=== PATIENT | male | born 1945 | race American Indian/Alaskan Native ===

== ENCOUNTER 2017-07-25 19:53 | Inpatient (IN) | payer MEDICARE ==
--- NOTE | 2017-07-25 22:12 | Emergency Department Report ---
ED Shortness of Breath HPI - General Chief Complaint: Dyspnea/Respdistress Stated Complaint: SWOLLEN LEGS HX CHF Time Seen by Provider: 07/25/17 22:07 Source: patient Mode of arrival: Stretcher Limitations: No Limitations - History of Present Illness Initial Comments: Patient is a 71-year-old male who presents emergency room with complaints of shortness of breath on 2-3 days. Patient also complains of bilateral lower extremity edema only up to his knees. Patient states that the edema is worsening. Patient states that the shortness of breath develops exertion or worsening. Patient denies fever, chills, abdominal pain and chest pain. MD Complaint: shortness of breath -: Gradual, days(s) (2-3 days ago. She states that the symptoms are worsening) Severity: severe Consistency: constant Improves With: rest, other (elevation of legs) Worsens With: lying flat, exertion, movement Known History Of: congestive heart failure Context: medication noncompliance Associated Symptoms: denies other symptoms Treatments Prior to Arrival: none - Related Data Home Oxygen Therapy: No Home Medications Medication Instructions Recorded Confirmed Last Taken Amiodarone [Cordarone] 200 mg PO QDAY 05/01/13 05/01/13 05/01/13 08:00 Pravastatin Sodium [Pravastatin] 40 mg PO QDAY 05/01/13 05/01/13 05/01/13 08:00 Warfarin [Coumadin] 1 mg PO Q48HR 05/01/13 05/01/13 04/30/13 08:00 Warfarin [Coumadin] 5 mg PO QDAY 05/01/13 05/01/13 05/01/13 08:00 amLODIPine [Norvasc] 10 mg PO DAILY 05/01/13 05/01/13 05/01/13 08:00 hydrALAZINE [Apresoline] 25 mg PO Q8H 05/01/13 05/01/13 05/01/13 08:00 Previous Rx's Medication Instructions Recorded Last Taken Type Cyclobenzaprine HCl [FLEXERIL] 5 mg PO Q8HR PRN #20 tablet 05/01/13 Unknown Rx HYDROcodone/APAP 5-325 [[place] 1 each PO Q8HR PRN #20 tablet 05/01/13 Unknown Rx 5/325 mg] Allergies Allergy/AdvReac Type Severity Reaction Status Date / Time No Known Allergies Allergy Unverified 05/01/13 10:20 ED Review of Systems ROS: Stated complaint: SWOLLEN LEGS HX CHF Other details as noted in HPI Comment: All other systems reviewed and negative Constitutional: denies: chills, fever Eyes: denies: eye pain, eye discharge, vision change ENT: denies: ear pain, throat pain Respiratory: shortness of breath, SOB with exertion, SOB at rest. denies: cough , wheezing Cardiovascular: edema. denies: chest pain, palpitations Endocrine: no symptoms reported Gastrointestinal: denies: abdominal pain, nausea, diarrhea Genitourinary: denies: urgency, dysuria Musculoskeletal: denies: back pain, joint swelling, arthralgia Skin: denies: rash, lesions Neurological: denies: headache, weakness, paresthesias Psychiatric: denies: anxiety, depression Hematological/Lymphatic: denies: easy bleeding, easy bruising ED Past Medical Hx - Past Medical History Previous Medical History?: Yes Hx Hypertension: Yes Hx CVA: Yes Hx Heart Attack/AMI: Yes Hx Congestive Heart Failure: Yes Hx COPD: Yes Additional medical history: high cholesterol. ? heart beat irregular - Surgical History Past Surgical History?: Yes Additional Surgical History: left clavicle - Family History Family history: hypertension - Social History Smoking Status: Current Every Day Smoker Substance Use Type: Alcohol - Medications Home Medications: Home Medications Medication Instructions Recorded Confirmed Last Taken Type Amiodarone [Cordarone] 200 mg PO QDAY 05/01/13 05/01/13 05/01/13 08:00 History Cyclobenzaprine HCl [FLEXERIL] 5 mg PO Q8HR PRN #20 tablet 05/01/13 Unknown Rx HYDROcodone/APAP 5-325 [[place] 1 each PO Q8HR PRN #20 tablet 05/01/13 Unknown Rx 5/325 mg] Pravastatin Sodium [Pravastatin] 40 mg PO QDAY 05/01/13 05/01/13 05/01/13 08:00 History Warfarin [Coumadin] 1 mg PO Q48HR 05/01/13 05/01/13 04/30/13 08:00 History Warfarin [Coumadin] 5 mg PO QDAY 05/01/13 05/01/13 05/01/13 08:00 History amLODIPine [Norvasc] 10 mg PO DAILY 05/01/13 05/01/13 05/01/13 08:00 History hydrALAZINE [Apresoline] 25 mg PO Q8H 05/01/13 05/01/13 05/01/13 08:00 History ED Physical Exam - General Limitations: No Limitations General appearance: alert, in no apparent distress - Head Head exam: Present: atraumatic, normocephalic - Eye Eye exam: Present: normal appearance - ENT ENT exam: Present: mucous membranes moist - Neck Neck exam: Present: normal inspection - Respiratory Respiratory exam: Present: normal lung sounds bilaterally. Absent: respiratory distress - Cardiovascular Cardiovascular Exam: Present: regular rate, normal rhythm. Absent: systolic murmur, diastolic murmur, rubs, gallop - GI/Abdominal GI/Abdominal exam: Present: soft, normal bowel sounds - Rectal Rectal exam: Present: deferred - Extremities Exam Extremities exam: Present: pedal edema (3+ pitting edema to the bilateral lower extremities) - Back Exam Back exam: Present: normal inspection - Neurological Exam Neurological exam: Present: alert, oriented X3 - Psychiatric Psychiatric exam: Present: normal affect, normal mood - Skin Skin exam: Present: warm, dry, intact, normal color. Absent: rash ED Course Vital Signs 07/25/17 07/25/17 07/25/17 21:12 23:22 23:31 Temperature 98.6 F Pulse Rate 77 127 H 117 H Respiratory 17 17 25 H Rate Blood Pressure 163/109 178/131 O2 Sat by Pulse 99 Oximetry 07/25/17 23:40 Temperature Pulse Rate 112 H Respiratory Rate Blood Pressure O2 Sat by Pulse Oximetry - Reevaluation(s) Reevaluation #1: 07/25/17 23:07 -- discuss case with . Dr Andersen recommends admission to the hospital and treat patient as an N STEMI, along with heparin drip, Lasix, Lopressor. And consult hospitalist for admission. Reevaluation #2: 07/26/17 00:32--- patient states shortness of breath improved with treatment. Results discussed with patient. Patient informed he will be admitted to the hospital patient agrees to plan of care. Patient states he is diuresing well ED Medical Decision Making - Lab Data Result diagrams: 07/25/17 21:39 07/25/17 21:39 - EKG Data -: EKG Interpreted by Me Rate: tachycardia - EKG Data When compared to previous EKG there are: previous EKG unavailable Interpretation: other (atrial fibrillation with a left bundle branch block) - Radiology Data Radiology results: report reviewed - Medical Decision Making Patient is a 71-year-old male presented to the emergency room with shortness of breath and found to be a an STEMI and CHF exacerbation. Hospitalist consultation for further evaluation and admission. Hospitalist will admit - Differential Diagnosis sob. pe. chf. nstemi Critical Care Time: Yes Critical care attestation.: If time is entered above; I have spent that time in minutes in the direct care of this critically ill patient, excluding procedure time. Critical Care Time: 45 minutes spent for critical care time ED Disposition Clinical Impression: Shortness of breath, Non-STEMI (non-ST elevated myocardial infarction), CHF exacerbation, Elevated d-dimer, Elevated brain natriuretic peptide (BNP) level, Anemia, Lower extremity edema, Hypertension Disposition: OP ADMIT IP TO THIS HOSP Is pt being admited?: Yes Does the pt Need Aspirin: No Condition: Critical Time of Disposition: 00:01
[2017-07-25 22:13] LABS: Basophils % (Auto) 0.3 % (0.0-1.8); Eosinophils % (Auto) 0.5 % (0.0-4.3); Hematocrit 33.3 % (35.5-45.6); Hemoglobin 10.3 gm/dl (11.8-15.2); Lymphocytes # (Auto) 1.3 K/mm3 (1.2-5.4); Lymphocytes % (Auto) 21.5 % (13.4-35.0); Mean Corpuscular HGB Conc 31 % (32-34); Mean Corpuscular Volume 74 fl (84-94); Monocytes # (Auto) 0.8 K/mm3 (0.0-0.8); Platelet Count 224 K/mm3 (140-440); Red Blood Count 4.52 M/mm3 (3.65-5.03); Red Cell Distribution Width 17.9 % (13.2-15.2)
[2017-07-25] MEDS ORDERED: ASPIRIN PO ONE (22:16)
[2017-07-25 22:17] LABS: BUN/Creatinine Ratio 18; Blood Urea Nitrogen 25 mg/dL (9-20); Calcium 9.1 mg/dL (8.4-10.2); Hemolysis Index 4
[2017-07-25 22:21] LABS: Mean Corpuscular Hemoglobin 23 pg (28-32)
--- NOTE | 2017-07-25 22:36 | XRay Report ---
FINAL REPORT PROCEDURE: PA and lateral chest x-ray TECHNIQUE: PA and lateral chest radiographs were obtained. CPT 78895 HISTORY: Shortness of breath COMPARISON: No prior studies are available for comparison. FINDINGS: The heart is diffusely enlarged. The pulmonary vasculature is not distended. The lungs are hyperinflated with flattening of the diaphragms and mild increased AP diameter suggesting underlying COPD. There is patchy alveolar density present in the left lower lobe suggesting pneumonia or atelectasis. There is mild blunting of the left lateral costophrenic angle suggesting small left pleural effusions. No acute bony abnormalities are identified. IMPRESSION: Cardiomegaly. COPD. Patchy alveolar density present in the left lower lobe as described suggesting pneumonia as well small left effusion. Atelectasis could present this manner. .
[2017-07-25 22:46] LABS: Chol/HDL Ratio 2.59 %; HDL Cholesterol 52 mg/dL (40-59); LDL Cholesterol,Direct 69 mg/dL (50-130)
[2017-07-25] MEDS ORDERED: LASIX IV ONE (23:11)
[2017-07-25] MEDS ORDERED: LOPRESSOR IV ONE (23:11)
[2017-07-25] MEDS ORDERED: HEPARIN 25,000 UNIT in D5W 497.5 ML IV SCH (23:45)
[2017-07-25] MEDS ORDERED: TYLENOL PO PRN (23:54)
[2017-07-25] MEDS ORDERED: ZOFRAN IV PRN (23:54)
[2017-07-25] MEDS ORDERED: DULCOLAX PR PRN (23:54)
[2017-07-25] MEDS ORDERED: MILK OF MAGNESIA PO PRN (23:54)
[2017-07-25] MEDS ORDERED: MORPHINE IV PRN (23:54)
--- NOTE | 2017-07-25 23:54 | History and Physical Report ---
History of Present Illness Date of examination: 07/25/17 History of present illness: 71-year-old man with a history of hypertension, hyperlipidemia, CVA, emergency room with complaints of shortness of breath, PND and orthopnea 2 weeks and lower extremity edema. Also complaining of pain across his chest which he described as a heavy sensation, unable to say how long he lost 4, intensity 5/10 , no radiation and degenerated and exacerbating or relieving factors. Admits to palpitation, no nausea vomiting, diaphoresis he is unclear about when the chest pain started Review Of Systems: Constitutional: no weight loss Ears, eyes, nose, mouth and throat: no nasal congestion, no nasal discharge, no sinus pressure, blurry vision, diplopia Neck: No neck pain or rigidity. Cardiovascular: +chest pain, palpitations Respiratory:+ shortness of breath, cough Gastrointestinal: No abdominal pain, hematochezia Genitourinary : no dysuria, frequency , hematuria Musculoskeletal: no muscle ache Integumentary: no rash, no pruritis Neurological: no parathesias, focal weakness Endocrine: no cold or heat intolerance, no polyuria or polydipsia Hematologic/Lymphatic: no easy bruising, no easy bleeding, no gland swelling Allergic/Immunologic: no urticaria, no angioedema. PAST MEDICAL HISTORY: hypertension, hyperlipidemia, CVA PAST SURGICAL HISTORY: None FAMILY HISTORY: Hypertension SOCIAL HISTORY: Smokes 6 cigarettes a day, alcohol use, no drugs Medications and Allergies Allergies Allergy/AdvReac Type Severity Reaction Status Date / Time No Known Allergies Allergy Unverified 05/01/13 10:20 Home Medications Medication Instructions Recorded Confirmed Last Taken Type Amiodarone [Cordarone] 200 mg PO QDAY 05/01/13 05/01/13 05/01/13 08:00 History Cyclobenzaprine HCl [FLEXERIL] 5 mg PO Q8HR PRN #20 tablet 05/01/13 Unknown Rx HYDROcodone/APAP 5-325 [[place] 1 each PO Q8HR PRN #20 tablet 05/01/13 Unknown Rx 5/325 mg] Pravastatin Sodium [Pravastatin] 40 mg PO QDAY 05/01/13 05/01/13 05/01/13 08:00 History Warfarin [Coumadin] 1 mg PO Q48HR 05/01/13 05/01/13 04/30/13 08:00 History Warfarin [Coumadin] 5 mg PO QDAY 05/01/13 05/01/13 05/01/13 08:00 History amLODIPine [Norvasc] 10 mg PO DAILY 05/01/13 05/01/13 05/01/13 08:00 History hydrALAZINE [Apresoline] 25 mg PO Q8H 05/01/13 05/01/13 05/01/13 08:00 History Active Meds: Active Medications Heparin Sodium/Sodium Chloride (Heparin/ 0.45% Nacl-25,000 Unit/500 Ml) 25,000 unit in 500 mls @ 24 mls/hr IV TITR YA; 1,200 UNITS/HR PRN Reason: Protocol Exam - Physical Exam Narrative exam: Gen. appearance: Patient lying in bed in no acute distress HEENT: Normocephalic/atraumatic, pupils equal round reactive to light, extra occular movement intact, no scleral icterus, no JVD or thyromegaly or nodule, neck is supple, mucous membrane moist, no erythema or exudate Heart: S1-S2, regular rate and rhythm Lungs: Crackles bilateral breathing comfortable Abdomen: Positive bowel sounds, nontender, nondistended, no organomegaly Extremities:no edema, no cyanosis, clubbing Neuro:: Oriented 3 , cranial nerves II-12 intact, speech, motor intact Skin: No rash, nodules, warm dry - Constitutional Vitals: Temp Pulse Resp BP Pulse Ox 98.6 F 112 H 25 H 178/131 99 07/25/17 21:12 07/25/17 23:40 07/25/17 23:31 07/25/17 23:31 07/25/17 21:12 Results - Labs CBC & Chem 7: 07/25/17 21:39 07/25/17 21:39 Labs: Abnormal lab results 07/25/17 07/25/17 07/25/17 Range/Units 21:39 21:39 22:34 Hgb 10.3 L (11.8-15.2) gm/dl Hct 33.3 L (35.5-45.6) % MCV 74 L (84-94) fl MCH 23 L (28-32) pg MCHC 31 L (32-34) % RDW 17.9 H (13.2-15.2) % [place] % (Auto) 13.0 H (0.0-7.3) % D-Dimer (0-234) ng/mlDDU BUN 25 H (9-20) mg/dL Troponin T 1.370 H* (0.00-0.029) ng/mL NT-Pro-B Natriuret Pep 8317 H (0-900) pg/mL 07/25/17 Range/Units 22:34 Hgb (11.8-15.2) gm/dl Hct (35.5-45.6) % MCV (84-94) fl MCH (28-32) pg MCHC (32-34) % RDW (13.2-15.2) % [place] % (Auto) (0.0-7.3) % D-Dimer 973.26 H (0-234) ng/mlDDU BUN (9-20) mg/dL Troponin T (0.00-0.029) ng/mL NT-Pro-B Natriuret Pep (0-900) pg/mL - Imaging and Cardiology EKG: image reviewed Chest x-ray: image reviewed Assessment and Plan Assessment Non-STEMI CHF, acute probably diastolic dysfunction Community acquired pneumonia Hypertension Hyperlipidemia History of CVA Plan Admit to medicine Start Beta gabriela, MELVIN inhibitor, aspirin, IV Lasix Monitor I's and O's, daily weights Check cardiac enzymes, echo, consult cardiology Consult critical care, continue heparin drip, IV Levaquin DVT prophylaxis
[2017-07-26] MEDS: HEPARIN/ 0.45% NACL-25,000 UNIT/500 ML 25,000 UNIT/500 ML BAG IV SCH (00:29)
[2017-07-26] MEDS: LEVAQUIN PO SCH ×2 (01:00→09:45)
[2017-07-26 01:15] LABS: Creatine Kinase MB 115.3 ng/mL (0.0-4.0)
--- NOTE | 2017-07-26 02:58 | Cat Scan Report ---
FINAL REPORT PROCEDURE: CT ANGIO CHEST TECHNIQUE: Computerized tomographic angiography of the chest was performed after the IV injection of iodinated nonionic contrast including image processing. The image data was postprocessed using 2-dimensional multiplanar reformatted (MPR) and 3-dimensional (MIP and/or volume rendered) techniques. HISTORY: sob COMPARISON: No prior studies are available for comparison. FINDINGS: Heart and pericardium: The heart is borderline enlarged. There is a tiny pericardial effusion.. Thoracic aorta: There is calcified plaque in the thoracic aorta. There is inadequate luminal contrast to detect dissection.. Pulmonary vasculature: There is no pulmonary embolism.. Lymph nodes: No enlarged thoracic lymph nodes. Lungs: The lungs are expanded. There is moderate COPD. There are bibasilar infiltrates. Pleural space: There are small bilateral pleural effusions. There is no pneumothorax.. Musculoskeletal structures: No significant abnormality. Upper abdominal structures: No significant abnormality. IMPRESSION: There is no pulmonary embolism. The heart is borderline enlarged. There is a tiny pericardial effusion.. There is calcified plaque in the thoracic aorta. There is inadequate luminal contrast to detect dissection.. The lungs are expanded. There is moderate COPD. There are bibasilar infiltrates. There are small bilateral pleural effusions. There is no pneumothorax..
[2017-07-26] MEDS ORDERED: APRESOLINE IV PRN (03:22)
[2017-07-26] MEDS ORDERED: APRESOLINE ONE (03:25)
[2017-07-26 04:35] LABS: Hemoglobin 8.6 gm/dl (11.8-15.2); Mean Corpuscular Volume 76 fl (84-94); Red Blood Count 4.22 M/mm3 (3.65-5.03)
[2017-07-26 04:36] LABS: Basophils % (Auto) 0.3 % (0.0-1.8); Lymphocytes % (Auto) 23.6 % (13.4-35.0); Mean Corpuscular HGB Conc 27 % (32-34); Mean Corpuscular Hemoglobin 21 pg (28-32); Monocytes # (Auto) 0.6 K/mm3 (0.0-0.8); Monocytes % (Auto) 14.3 % (0.0-7.3); Platelet Count 175 K/mm3 (140-440); Red Cell Distribution Width 18.2 % (13.2-15.2)
[2017-07-26 04:52] LABS: BUN/Creatinine Ratio 18; Blood Urea Nitrogen 25 mg/dL (9-20); Calcium 8.8 mg/dL (8.4-10.2); Hemolysis Index 10
[2017-07-26] MEDS: LASIX IV SCH (06:43)
[2017-07-26 06:47] LABS: Creatine Kinase MB 88.9 ng/mL (0.0-4.0)
[2017-07-26] MEDS: ECOTRIN PO SCH (09:45)
[2017-07-26] MEDS ORDERED: COREG PO SCH (10:00)
--- NOTE | 2017-07-26 11:04 | Consultation ---
History of Present Illness Consult date: 07/26/17 Requesting physician: SHIELA PORTILLO III Consult reason: other (nstemi) History of present illness: The pt is a 71 YO male with a past medical history significant for HTN, HLP, tobacco use and ETOH use. He is previously unknown to our practice. He presented with complaints of dyspnea on exertion for 2-3 days prior to arrival. He also c/o progressively worsening BLE edema for 1 week prior to arrival. Pt denies any chest pain, palpitations, n/v, diaphoresis, dizziness or syncope. Following admission, DDimer was found to be elevated. Chest CTA was negative for PE, showed tiny pericardial effusion, calcified plaque in the thoracic aorta , moderate COPD, bibasilar infiltrates, small bilateral pleural effusions. Troponins were also found to be elevated (1.370 --> 2.010) with elevated total CK, CK-MB and CK-MB index and thus heparin gtt was initiated. ECG with no acute ischemic chages. Pt was also found to be in atrial fibrillation. He reports a history of "irregular heart rhythm" 15 years ago secondary to excessive alcohol consumption. He denies any prior AMI, cardiac stents or heart failure. 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 He denies any prior cardiac evaluation. Past History Past Medical History: hypertension, hyperlipidemia Social history: smoking, alcohol abuse Medications and Allergies Allergies Allergy/AdvReac Type Severity Reaction Status Date / Time No Known Allergies Allergy Unverified 05/01/13 10:20 Home Medications Medication Instructions Recorded Confirmed Last Taken Type Aspirin [Adult Low Dose Aspirin EC] 81 mg PO DAILY 07/26/17 07/26/17 07/24/17 History Ibuprofen [Motrin] 200 mg PO Q2D PRN 07/26/17 07/26/17 Unknown History Lactase [Dairy Relief] 9,000 unit PO QDAY 07/26/17 07/26/17 07/24/17 History Active Meds: Active Medications Acetaminophen (Tylenol) 650 mg PO Q4H PRN PRN Reason: Pain MILD(1-3)/Fever >100.5/[place] Aspirin (Ecotrin) 325 mg PO QDAY [facility] Last Admin: 07/26/17 09:45 Dose: 325 mg Atorvastatin Calcium (Lipitor) 40 mg PO QHS [facility] Bisacodyl (Dulcolax) 10 mg [place] QDAY PRN PRN Reason: Constipation unrelieved by MOM Carvedilol (Coreg) 3.125 mg PO BID [facility] Last Admin: 07/26/17 09:44 Dose: 3.125 mg Furosemide (Lasix) 40 mg IV 0600,1800 [facility] Last Admin: 07/26/17 06:43 Dose: 40 mg Hydralazine HCl (Apresoline) 5 mg IV Q6H PRN PRN Reason: Blood Pressure Last Admin: 07/26/17 03:28 Dose: 5 mg Heparin Sodium/Sodium Chloride (Heparin/ 0.45% Nacl-25,000 Unit/500 Ml) 25,000 unit in 500 mls @ 24 mls/hr IV TITR YA; 1,200 UNITS/HR PRN Reason: Protocol Last Titration: 07/26/17 07:16 Dose: 1,284 units/hr, 25.68 mls/hr Levofloxacin (Levaquin) 500 mg PO DAILY [facility] Last Admin: 07/26/17 09:45 Dose: 500 mg Magnesium Hydroxide (Milk Of Magnesia) 30 ml PO Q4H PRN PRN Reason: Constipation Morphine Sulfate (Morphine) 2 mg IV Q4H PRN PRN Reason: Pain, Moderate (4-6) Ondansetron HCl (Zofran) 4 mg IV Q8H PRN PRN Reason: N/V unrelieved by Reglan Review of Systems Constitutional: no weight loss, no weight gain, no fever, no chills, no sweats Ears, nose, mouth and throat: no ear pain, no nose pain, no sinus pressure, no sinus pain Cardiovascular: shortness of breath, dyspnea on exertion, high blood pressure, leg edema (BLE), no chest pain, no orthopnea, no palpitations, no rapid/ irregular heart beat, no edema, no syncope, no lightheadedness Respiratory: shortness of breath, dyspnea on exertion, no cough, no congestion, no wheezing, no pain on inspiration Gastrointestinal: no abdominal pain, no nausea, no vomiting, no diarrhea, no constipation, no change in bowel habits Genitourinary Male: no dysuria, no hematuria, no flank pain, no discharge, no urinary frequency, no urinary hesitancy Musculoskeletal: no neck stiffness, no neck pain, no shooting arm pain, no arm numbness/tingling, no low back pain, no shooting leg pain, no leg numbness/ tingling, no redness of joints, no hot joints, no morning stiffness, no muscle weakness Integumentary: no rash, no pruritis, no redness, no sores, no wounds Neurological: no head injury, no paralysis, no weakness, no parathesias, no numbness, no tingling, no seizures, no syncope Psychiatric: no anxiety Endocrine: no cold intolerance, no heat intolerance Hematologic/Lymphatic: no easy bruising, no easy bleeding, no lymphadenopathy Allergic/Immunologic: no urticaria, no wheezing, no persistent infections Physical Examination Vital Signs Temp Pulse Resp BP Pulse Ox 98.6 F 77 17 163/109 99 07/25/17 21:12 07/25/17 21:12 07/25/17 21:12 07/25/17 21:12 07/25/17 21:12 General appearance: no acute distress HEENT: Positive: PERRL, Normocephaly, Mucus Membranes Moist Neck: Positive: neck supple, trachea midline Cardiac: Positive: Reg Rate and Rhythm, S1/S2 Lungs: Positive: clear to auscultation Neuro: Positive: Grossly Intact Abdomen: Positive: Soft. Negative: Tender Skin: Positive: Clear Musculoskeletal: No Fluid Collection, No Pain, Normal Range of Motion Extremities: Present: +2 Edema (BLE) Results 07/26/17 03:53 07/26/17 03:53 Cardiac Enzymes 07/25/17 07/26/17 Range/Units 22:34 05:53 CK-MB (CK-2) 115.3 H 88.9 H (0.0-4.0) ng/mL Lipids 07/25/17 Range/Units 21:39 Triglycerides 71 (2-149) mg/dL Cholesterol 135 (50-199) mg/dL HDL Cholesterol 52 (40-59) mg/dL Cholesterol/HDL Ratio 2.59 % CBC 07/25/17 07/26/17 Range/Units 21:39 03:53 WBC 6.1 4.4 L (4.5-11.0) K/mm3 RBC 4.52 4.22 (3.65-5.03) M/mm3 Hgb 10.3 L 8.6 L (11.8-15.2) gm/dl Hct 33.3 L 32.0 L (35.5-45.6) % Plt Count 224 175 (140-440) K/mm3 Lymph # 1.3 1.0 L (1.2-5.4) K/mm3 [place] # 0.8 0.6 (0.0-0.8) K/mm3 Eos # 0.0 0.0 (0.0-0.4) K/mm3 Baso # 0.0 0.0 (0.0-0.1) K/mm3 Comprehensive Metabolic Panel 07/25/17 07/26/17 Range/Units 21:39 03:53 Sodium 140 137 (137-145) mmol/L Potassium 4.1 4.1 (3.6-5.0) mmol/L Chloride 101.0 98.3 (98-107) mmol/L Carbon Dioxide 22 22 (22-30) mmol/L BUN 25 H 25 H (9-20) mg/dL Creatinine 1.4 1.4 (0.8-1.5) mg/dL Glucose 90 89 (75-100) mg/dL Calcium 9.1 8.8 (8.4-10.2) mg/dL - Imaging and Cardiology Echo: pending EKG: report reviewed, image reviewed EKG interpretations - Telemetry EKG Rhythm: Atrial Fibrillation - EKG Supraventricular dysrhythmia: atrial fibrillation Assessment and Plan Assessment: NSTEMI type I - pt is chest pain free; ECG with no acute ischemic changes Acute heart failure Atrial fibrillation Uncontrolled HTN Bilateral PNA Elevated DDimer - chest CTA negative for PE H/o tobacco use / ETOH use - cessation encouraged Plan: Continue heparin gtt, ASA 325 and lipitor. Initiate lopressor and Imdur. Cont diuresis with IV lasix BID. Obtain echo. Abx per primary. Plan for coronary angiography in AM. NPO after MN. Assessment and plan reviewed with pt at bedside. The patient has been seen in conjunction with Dr. Simon who agrees with the assessment and plan of care.
--- NOTE | 2017-07-26 11:43 | Consultation ---
History of Present Illness Consult date: 07/26/17 Requesting physician: PRATIBHA MADISON Reason for consult: other (NSTEMI; ACS) History of present illness: PULMONARY/CCM CONSULT NOTE (Full dictation # [id number]) Please see dictated notes for full details Past History Past Medical History: hypertension, hyperlipidemia Social history: smoking, alcohol abuse Medications and Allergies Allergies Allergy/AdvReac Type Severity Reaction Status Date / Time No Known Allergies Allergy Unverified 05/01/13 10:20 Home Medications Medication Instructions Recorded Confirmed Last Taken Type Aspirin [Adult Low Dose Aspirin EC] 81 mg PO DAILY 07/26/17 07/26/17 07/24/17 History Ibuprofen [Motrin] 200 mg PO Q2D PRN 07/26/17 07/26/17 Unknown History Lactase [Dairy Relief] 9,000 unit PO QDAY 07/26/17 07/26/17 07/24/17 History Active Meds: Active Medications Acetaminophen (Tylenol) 650 mg PO Q4H PRN PRN Reason: Pain MILD(1-3)/Fever >100.5/SULLIVAN Aspirin (Ecotrin) 325 mg PO QDAY YA Last Admin: 07/26/17 09:45 Dose: 325 mg Atorvastatin Calcium (Lipitor) 40 mg PO QHS YA Bisacodyl (Dulcolax) 10 mg HI QDAY PRN PRN Reason: Constipation unrelieved by MOM Furosemide (Lasix) 40 mg IV 0600,1800 YA Last Admin: 07/26/17 06:43 Dose: 40 mg Hydralazine HCl (Apresoline) 5 mg IV Q6H PRN PRN Reason: Blood Pressure Last Admin: 07/26/17 03:28 Dose: 5 mg Heparin Sodium/Sodium Chloride (Heparin/ 0.45% Nacl-25,000 Unit/500 Ml) 25,000 unit in 500 mls @ 24 mls/hr IV TITR YA; 1,200 UNITS/HR PRN Reason: Protocol Last Titration: 07/26/17 07:16 Dose: 1,284 units/hr, 25.68 mls/hr Sodium Chloride (Nacl 0.9% 500 Ml) 500 mls @ 50 mls/hr IV DIRECT YA Stop: 07/26/17 21:59 Isosorbide Mononitrate (Imdur) 30 mg PO QDAY YA Levofloxacin (Levaquin) 500 mg PO DAILY [facility] Last Admin: 07/26/17 09:45 Dose: 500 mg Magnesium Hydroxide (Milk Of Magnesia) 30 ml PO Q4H PRN PRN Reason: Constipation Metoprolol Tartrate (Lopressor) 25 mg PO BID [facility] Morphine Sulfate (Morphine) 2 mg IV Q4H PRN PRN Reason: Pain, Moderate (4-6) Ondansetron HCl (Zofran) 4 mg IV Q8H PRN PRN Reason: N/V unrelieved by Reglan Physical Examination Vital signs: Vital Signs Temp Pulse Resp BP Pulse Ox 98.6 F 77 17 163/109 99 07/25/17 21:12 07/25/17 21:12 07/25/17 21:12 07/25/17 21:12 07/25/17 21:12 Results - Laboratory Findings CBC and BMP: 07/26/17 03:53 07/26/17 03:53 PT/INR, D-dimer D-Dimer 973.26 ng/mlDDU (0-234) H 07/25/17 22:34 Abnormal lab findings: Abnormal Labs 07/25/17 07/25/17 07/25/17 21:39 21:39 22:34 WBC Hgb 10.3 L Hct 33.3 L MCV 74 L MCH 23 L MCHC 31 L RDW 17.9 H [place] % (Auto) 13.0 H Lymph # D-Dimer Heparin Anti-Xa Level BUN 25 H Total Creatine Kinase CK-MB (CK-2) CK-MB (CK-2) Rel Index Troponin T 1.370 H* NT-Pro-B Natriuret Pep 8317 H 07/25/17 07/25/17 07/26/17 22:34 22:34 03:53 WBC 4.4 L Hgb 8.6 L Hct 32.0 L MCV 76 L MCH 21 L MCHC 27 L RDW 18.2 H [place] % (Auto) 14.3 H Lymph # 1.0 L D-Dimer 973.26 H Heparin Anti-Xa Level BUN Total Creatine Kinase 736 H CK-MB (CK-2) 115.3 H CK-MB (CK-2) Rel Index 15.6 H Troponin T NT-Pro-B Natriuret Pep 02/12/18 02/12/18 02/12/18 03:53 05:53 05:53 WBC Hgb Hct MCV MCH MCHC RDW [place] % (Auto) Lymph # D-Dimer Heparin Anti-Xa Level BUN 25 H Total Creatine Kinase 667 H CK-MB (CK-2) 88.9 H CK-MB (CK-2) Rel Index 13.3 H Troponin T 2.010 H* D NT-Pro-B Natriuret Pep 07/26/17 05:53 WBC Hgb Hct MCV MCH MCHC RDW [place] % (Auto) Lymph # D-Dimer Heparin Anti-Xa Level 0.19 L BUN Total Creatine Kinase CK-MB (CK-2) CK-MB (CK-2) Rel Index Troponin T NT-Pro-B Natriuret Pep
[2017-07-26] MEDS ORDERED: NACL 0.9% 500 ML 500 ML IV SCH (12:00)
[2017-07-26] MEDS ORDERED: IMDUR PO SCH (12:00)
--- NOTE | 2017-07-26 12:20 | Progress Note ---
Assessment and Plan Assessment and plan: 71-year-old man with a history of hypertension, hyperlipidemia, CVA, emergency room with complaints of shortness of breath, PND and orthopnea 2 weeks and lower extremity edema, chest pain and palpitations, found to have NSTEMI, acutely Elevated DDimer - chest CTA negative for PE Non-STEMI CHF, acute Community acquired pneumonia Afib with RVR and hypercoaguable state Hypertensive urgency Hyperlipidemia History of CVA ckd stage 2 Plan Plan for coronary angiography in AM. NPO after MN. on nitrates, Beta gabriela, MELVIN inhibitor, aspirin, IV Lasix, heparin drip Monitor I's and O's, daily weights, lasix received IV metoprolol, rate is now better controlled continue oral B-Bl IV levaquin avoid nephrotoxins H/o tobacco use / ETOH use - cessation encouraged The high probability of a clinically significant, sudden or life threatening deterioration of the [cv, pulmonary, renal] system(s) required my full and direct attention, intervention and personal management. The aggregate critical care time was [44] minutes. This time is in addition to time spent performing reported procedures but includes the following: [] Data Review and interpretation [] Patient assessment and monitoring of vital signs [] Documentation [] Medication orders and management History Interval history: denies CP, palpitations, sob, SULLIVAN or fever Hospitalist Physical - Constitutional Vitals: Temp Pulse Resp BP Pulse Ox 98.2 F 111 H 24 156/110 96 07/26/17 04:27 07/26/17 10:00 07/26/17 10:00 07/26/17 10:00 07/26/17 09:31 General appearance: Present: no acute distress - EENT Eyes: Present: PERRL ENT: hearing intact - Neck Neck: Present: supple - Respiratory Respiratory effort: normal Respiratory: bilateral: CTA - Cardiovascular Rhythm: regular - Extremities Extremities: no ischemia Peripheral Pulses: within normal limits - Abdominal General gastrointestinal: soft, non-tender - Integumentary Integumentary: Present: clear, warm - Psychiatric Psychiatric: appropriate mood/affect, intact judgment & insight - Neurologic Neurologic: CNII-XII intact, moves all extremities Results - Labs CBC & Chem 7: 07/26/17 03:53 07/26/17 03:53 Labs: Laboratory Last Values WBC 4.4 K/mm3 (4.5-11.0) L 07/26/17 03:53 RBC 4.22 M/mm3 (3.65-5.03) 07/26/17 03:53 Hgb 8.6 gm/dl (11.8-15.2) L 07/26/17 03:53 Hct 32.0 % (35.5-45.6) L 07/26/17 03:53 MCV 76 fl (84-94) L 07/26/17 03:53 MCH 21 pg (28-32) L 07/26/17 03:53 MCHC 27 % (32-34) L 07/26/17 03:53 RDW 18.2 % (13.2-15.2) H 07/26/17 03:53 Plt Count 175 K/mm3 (140-440) 07/26/17 03:53 Lymph % (Auto) 23.6 % (13.4-35.0) 07/26/17 03:53 [place] % (Auto) 14.3 % (0.0-7.3) H 07/26/17 03:53 Eos % (Auto) 1.0 % (0.0-4.3) 07/26/17 03:53 Baso % (Auto) 0.3 % (0.0-1.8) 07/26/17 03:53 Lymph # 1.0 K/mm3 (1.2-5.4) L 07/26/17 03:53 [place] # 0.6 K/mm3 (0.0-0.8) 07/26/17 03:53 Eos # 0.0 K/mm3 (0.0-0.4) 07/26/17 03:53 Baso # 0.0 K/mm3 (0.0-0.1) 07/26/17 03:53 Seg Neutrophils % 60.8 % (40.0-70.0) 07/26/17 03:53 Seg Neutrophils # 2.7 K/mm3 (1.8-7.7) 07/26/17 03:53 D-Dimer 973.26 ng/mlDDU (0-234) H 07/25/17 22:34 Heparin Anti-Xa Level 0.19 U.I./ml (0.3-0.7) L 07/26/17 05:53 Sodium 137 mmol/L (137-145) 07/26/17 03:53 Potassium 4.1 mmol/L (3.6-5.0) 07/26/17 03:53 Chloride 98.3 mmol/L (98-107) 07/26/17 03:53 Carbon Dioxide 22 mmol/L (22-30) 07/26/17 03:53 Anion Gap 21 mmol/L 07/26/17 03:53 BUN 25 mg/dL (9-20) H 07/26/17 03:53 Creatinine 1.4 mg/dL (0.8-1.5) 07/26/17 03:53 Estimated GFR > 60 ml/min 07/26/17 03:53 BUN/Creatinine Ratio 18 % 07/26/17 03:53 Glucose 89 mg/dL (75-100) 07/26/17 03:53 Calcium 8.8 mg/dL (8.4-10.2) 07/26/17 03:53 Total Creatine Kinase 667 units/L (55-170) H 07/26/17 05:53 CK-MB (CK-2) 88.9 ng/mL (0.0-4.0) H 07/26/17 05:53 CK-MB (CK-2) Rel Index 13.3 (0-4) H 07/26/17 05:53 Troponin T 2.010 ng/mL (0.00-0.029) H* D 07/26/17 05:53 NT-Pro-B Natriuret Pep 8317 pg/mL (0-900) H 07/25/17 22:34 Triglycerides 71 mg/dL (2-149) 07/25/17 21:39 Cholesterol 135 mg/dL (50-199) 07/25/17 21:39 LDL Cholesterol Direct 69 mg/dL (50-130) 07/25/17 21:39 HDL Cholesterol 52 mg/dL (40-59) 07/25/17 21:39 Cholesterol/HDL Ratio 2.59 % 07/25/17 21:39
[2017-07-26] MEDS ORDERED: PROVENTIL IH PRN (13:33)
[2017-07-26 14:21] LABS: C-Reactive Protein 1.3 mg/dL (0.00-1.30); Magnesium 1.7 mg/dL (1.7-2.3)
[2017-07-26] MEDS ORDERED: LOPRESSOR IV PRN (14:24)
[2017-07-26] MEDS: ZESTRIL PO SCH (15:39)
[2017-07-26] MEDS: PEPCID PO SCH (15:39)
[2017-07-26] MEDS: PULMICORT IH SCH (20:15)
[2017-07-26] MEDS: BROVANA NEBU IH SCH (20:15)
[2017-07-26] MEDS: LOPRESSOR PO SCH (21:57)
[2017-07-27] MEDS: HEPARIN/ 0.45% NACL-25,000 UNIT/500 ML 25,000 UNIT/500 ML BAG IV SCH (00:21)
--- NOTE | 2017-07-27 03:04 | Consultation ---
CONSULTING PHYSICIAN: Dr. Moore. REASON FOR CONSULTATION: Critical care management. CHIEF COMPLAINT AND HISTORY OF PRESENT ILLNESS: The patient is a 71-year-old -Swazi male with past medical history significant amongst other things for a diagnosis of cardiomyopathy for which he states he should be on some kind of diuretic at home, admits to not remembering his medications, admits to running out of his medications and does not even remember when he did came into the Emergency Room, complaining of shortness of breath, orthopnea, paroxysmal nocturnal dyspnea been going on for about a couple of weeks as well as bilateral lower extremity Dopplers. On the day of presentation, he felt tightness in his chest. He was unable to breathe in well. He denied any pain. He denied any nausea, vomiting, or overt aspiration. He was evaluated in the Emergency Room and essentially diagnosed with a non-ST elevation NH and started on IV heparin. ACLS protocol was started. Intensive Care Unit admission was requested. At that time, when I stopped by to see him, he was resting in bed. He was tolerating the IV heparin drip, he was feeling better, still with some orthopnea. He gives a 10 plus pack year tobacco smoking history, still smoking about 8 to 10 sticks of cigarettes a day. This really is as much of the history of presentation as I have. PAST MEDICAL HISTORY: Again hypertension, hyperlipidemia, cerebrovascular accident, and cardiomyopathy. PAST SURGICAL HISTORY: Denied. MEDICATIONS: He was on at the time I stopped by to see were reviewed. Pertinent medications included aspirin at 325 mg p.o. daily, Lipitor 40 mg p.o. at bedtime, Lasix 40 mg IV b.i.d., heparin drip was going at 1200 units per hour, titrated per ACS protocol. He was on p.r.n. hydralazine for elevated blood pressures. He was on Imdur 30 mg p.o. daily, Levaquin 500 mg p.o. daily, Zestril 40 mg p.o. daily, and morphine sulfate 2 mg IV q.4 hours p.r.n. moderate pain. He was also on metoprolol 25 mg p.o. b.i.d. ALLERGIES: No known drug allergies. DIET: Thin gentleman. Denies acute weight loss or gain in the preceding few weeks to months. FAMILY AND SOCIAL HISTORY: Lives in the community. He has a 10 plus pack year tobacco smoking history, continues to smoke. Denies alcohol or illicit drug use or abuse. REVIEW OF SYSTEMS: Complete 13 review of systems obtained and again, he denies gross hematochezia or melena. Denies gross hematuria. Denies hematemesis. Denies hemoptysis, denies dysuria. Denies any other bleeding diathesis. He denies any new rash, lumps, bumps on his body. Complete 13 systems review of systems obtained. Pertinent positives and/or negatives as in body of history above, otherwise noncontributory. PHYSICAL EXAMINATION: VITAL SIGNS: At presentation in the Emergency Room, he was afebrile, temperature 98.6, pulse was 77, respiratory rate was 16, blood pressure was 163/109, as high as 178/131. GENERAL: Elderly looking -Swazi male, looks as stated age, normocephalic, atraumatic, talking with me in mild interrupted sentences, in mild respiratory distress, on supplemental oxygen. HEAD, EYES, EARS, NOSE AND THROAT: He is anicteric. No conjunctival erythema. Oropharynx is moist. is a Mallampati #2. No gross jugular venous distention. No gross thyromegaly; grossly no palpable lymph nodes in the supraclavicular or submandibular lymph node chains. LUNGS: Auscultation of both lung vinson significant mainly for diminished bilateral air movement, faint basilar inspiratory rales, no wheezing. HEART: Heart sounds 1 and 2 were heard at the time of my evaluation, regular rate and rhythm. No rubs, no murmurs. ABDOMEN: Soft, full, bowel sounds positive, nontender, no palpable hepatosplenomegaly. EXTREMITIES: Without overt digital clubbing or cyanosis. He had about 1-2+ bipedal pitting edema. Dorsalis pedis pulses are palpable bilaterally. NEUROLOGIC: The pupils were equal, round, about 3 to 4 mm, reactive to light. Extraocular muscles and movements were intact. He moved all 4 extremities spontaneously. The skin was of normal turgor. No cellulitis, no rash. LABORATORY DATA: From my review are as follows: Admission white cell count 6100 with a hemoglobin of 10.3, hematocrit of 33.3, platelet count of 224,000. No band forms. D-dimer was elevated at 873. Serum sodium 140, potassium 4.1, chloride 101, bicarbonate 22, BUN 25, creatinine 1.4, glucose was 90. Troponin was 1.37 at presentation. CPK was 733, CK-MB was 115.3. LDL cholesterol was 69. No microbiology studies. A chest x-ray was done. I have reviewed the chest x-ray as well as reviewed the radiologist's interpretation. He has an area in the left lower lobe that appears like an area of atelectasis versus possible pneumonia, it is more evident on the lateral view. Element of hyperinflation. He does have gross cardiomegaly, increased interstitial markings bilaterally are consistent with interstitial edema. CT angiogram was also reviewed. I do not see any gross filling defects consistent with pulmonary emboli. He has small bilateral pleural effusion, small to moderate. The long windows demonstrate bullous emphysema, particularly involving the upper lobes, some motion artifact degrades interpretation. He does have some ground glass opacification. Overall, I think this is more consistent with pulmonary edema and decompensated heart failure. No obvious consolidation. ASSESSMENT: 1. Acute decompensated heart failure, ejection fraction is unclear. 2. Acute coronary syndrome, non-ST elevation myocardial infarction. I should mention the 12-lead EKG has been reviewed. 3. Likely acute chronic obstructive pulmonary disease exacerbation. 4. Atypical chest pain. 5. Hypertensive urgency in the setting of poorly controlled hypertension. 6. Anemia, microcytic. 7. Elevated D-dimer. 8. Mild acute kidney injury. PLAN: I will defer to Cardiology. We will continue with acute coronary artery syndrome protocol. We will continue him on intravenous heparin. He is on appropriate disease modifying medications including angiotensin-converting enzyme inhibitor, beta blockers, and nitrates. We will go ahead and get bilateral lower extremity Dopplers to evaluate a complete venous thromboembolic disorder workup looking for deep venous thrombosis. Tobacco abstinence has been strongly counselled. It is unclear if there really is any indication for anti-infective therapy in this gentleman. I will go ahead and stop the Levaquin at this point and follow him clinically. We will continue diuresis. He will be placed on gastrointestinal prophylaxis, especially in the setting of full anticoagulation. Flu and pneumonia vaccination will be per protocol. He is doing it better and I think we can transfer him to the telemetry unit, watch him closely, pending the invasive cardiac procedure that he is due to undergo tomorrow. Thank you very much for the consult. I should mention that we will go ahead and schedule him on long-acting bronchodilators as well as inhaled corticosteroids for radiographic and clinical chronic obstructive pulmonary disease with as needed short-acting bronchodilators. Flu and pneumonia vaccination will be addressed per protocol. Again, we will follow along and make further recommendations as picture progresses/becomes clearer. JOB# [id number] DIAMOND/CHELLE
[2017-07-27 05:33] LABS: Basophils % (Auto) 0.5 % (0.0-1.8); Eosinophils # (Auto) 0.2 K/mm3 (0.0-0.4); Eosinophils % (Auto) 2.6 % (0.0-4.3); Hematocrit 29.5 % (35.5-45.6); Hemoglobin 9.5 gm/dl (11.8-15.2); Lymphocytes # (Auto) 1.4 K/mm3 (1.2-5.4); Mean Corpuscular HGB Conc 32 % (32-34); Mean Corpuscular Volume 72 fl (84-94); Monocytes # (Auto) 0.7 K/mm3 (0.0-0.8); Monocytes % (Auto) 11.6 % (0.0-7.3); Platelet Count 179 K/mm3 (140-440); Red Blood Count 4.13 M/mm3 (3.65-5.03); Red Cell Distribution Width 18.1 % (13.2-15.2)
[2017-07-27 05:36] LABS: Mean Corpuscular Hemoglobin 23 pg (28-32)
[2017-07-27 05:45] LABS: INR 1.27 (0.87-1.13)
[2017-07-27 05:46] LABS: Heparin anti-factor XA 0.54 U.I./ml (0.3-0.7)
[2017-07-27 05:55] LABS: Creatine Kinase MB 15.7 ng/mL (0.0-4.0)
[2017-07-27 05:58] LABS: % Iron Saturation 6.67 %; BUN/Creatinine Ratio 18; Blood Urea Nitrogen 24 mg/dL (9-20); Calcium 8.3 mg/dL (8.4-10.2); Hemolysis Index 0; Iron 21 ug/dL (49-181); Total Iron Binding Capacity 315 mcg/dL (250-450); Transferrin 284 mg/dl (180-329)
[2017-07-27] MEDS ORDERED: K-DUR PO ONE (07:00)
[2017-07-27] MEDS: ECOTRIN PO SCH (08:00)
[2017-07-27] MEDS ORDERED: NACL 0.9% 500 ML 500 ML ONE (08:36)
[2017-07-27] MEDS ORDERED: NACL 0.9% 500 ML 500 ML IV SCH (09:00)
[2017-07-27] MEDS ORDERED: HEPARIN/NS 5000 UNIT/500ML(CATH LAB) 1,000 ML IR ONE (09:05)
[2017-07-27] MEDS ORDERED: HEPARIN 10,000 UNITS/10 ML ONE (09:05)
[2017-07-27] MEDS ORDERED: XYLOCAINE 2% INFILTRATI ONE (09:06)
[2017-07-27] MEDS ORDERED: CALAN ONE (09:06)
[2017-07-27] MEDS ORDERED: NITROGLYCERIN SYRINGE 3 ML ONE (09:06)
[2017-07-27] MEDS ORDERED: SUBLIMAZE ONE (09:07)
[2017-07-27] MEDS ORDERED: VERSED ONE (09:07)
--- NOTE | 2017-07-27 10:13 | Cardiac Catherization Report ---
CARDIAC CATHETERIZATION REFERRING PHYSICIAN: Abbe Simon MD INDICATION FOR PROCEDURE: The patient is a pleasant 71-year-old -[place] gentleman with multiple medical issues, presents here with chest pain, abnormal troponin consistent with type 1 non-STEMI, referred for left heart catheterization. Risks, benefits, and potential alternatives explained at length prior to obtaining informed consent. PROCEDURE IN DETAIL: The patient was brought to the [facility] [employer] in a postabsorptive state, prepped and draped in sterile fashion. Juan Pablo's test in right hand was normal. A 2 mL of 2% lidocaine used to anesthetize the right wrist. A standard 6-Kyrgyz hydrophilic sheath used to cannulate the right radial artery via modified Seldinger technique. All exchanges performed to exchange a J-tip guidewire. JL3.5 catheter used to engage the left main. No dampening or vegetation. Cineangiography performed in all projections. JR4 catheter used to cross the aortic valve under fluoroscopic guidance. Left ventriculography performed in 30 BERRY and 30 JORDANIAN projections via hand injections, catheter flushed. Manual pullback performed with continuous pressure monitoring. Catheter used to engage the right coronary. No dampening or ventricularization. Cineangiography performed in all projections. Next, catheter removed from the body of wire, sheath removed. Manual pressure used to achieve hemostasis. DATA: Aortic pressure is 150/80, LV pressure is 150, LVP of 12-14 mmHg. Left ventriculography reveals mild to moderate global left ventricular hypokinesis, estimated ejection fraction of 35-40%. No evidence of aortic stenosis, 1+ mitral regurgitation. The patient remained in atrial fibrillation with controlled ventricular response throughout the procedure. CORONARY ANATOMY: Left main without significant disease, bifurcates in left anterior descending and left circumflex. There is significant calcification in the proximal LAD and left circumflex. LAD is a moderate sized vessel, courses anterior intergroove, wraps around the apex, no significant disease in the LAD or diagonal system, large vessel. EMMIE 3 flow. Circumflex is a moderate sized vessel, courses AV groove. No significant disease in the circumflex system. Right coronary is a large vessel, courses AV groove, distally bifurcates in the posterior descending and posterolateral branch, no discrete stenosis in the large right dominant right coronary. CONCLUSIONS: 1. No angiographic evidence of significant epicardial coronary disease in this right dominant system. 2. Rnyu-vu-[id number] global left ventricular hypokinesis, estimated ejection fraction of 35-40%. 3. No evidence of aortic stenosis. 4. Normal LVEDP. Consider long-term systemic anticoagulation. Continue MELVIN and ARB. This is consistent with a mild to moderate nonischemic cardiomyopathy of unclear etiology. Troponin elevation unclear if this was an issue of spasm or coronary embolus. Nonetheless, continuous long-term systemic anticoagulation, statin therapy, MELVIN and beta blockade. Results of procedure explained to the patient at length. All questions and concerns were addressed. [facility]# [id number] SBRakesh/NTS
[2017-07-27] MEDS: BROVANA NEBU IH SCH ×2 (10:18→20:06)
[2017-07-27] MEDS: PULMICORT IH SCH ×2 (10:19→20:06)
--- NOTE | 2017-07-27 10:20 | Cardiac Catherization Report ---
ADDENDUM I directly supervised the administration of moderate sedation, Versed and fentanyl from 09:15 to 09:45. No complications noted. [facility]# [id number] SBM/NTS
--- NOTE | 2017-07-27 11:23 | Progress Note ---
Assessment and Plan Assessment: NSTEMI type II Acute systolic heart failure Atrial fibrillation with CVR Uncontrolled HTN - improving Bilateral PNA Elevated DDimer - chest CTA negative for PE H/o tobacco use / ETOH use - cessation encouraged Plan: Pt s/p [facility] this AM which showed normal coronaries, EF 35-40%. D/c heparin gtt and Imdur and decrease ASA to 81mg daily and lipitor to 40mg daily. Cont diuresis with IV lasix BID. Cont lopressor and lisinopril. Initiate Eliquis in setting of atrial fibrillation. Echo reviewed - EF 40-45%, mod LVH, LA and RA mod dilated, mod TR, pulm HTN with RVSP 49mmHg, Assessment and plan reviewed with pt at bedside. The patient has been seen in conjunction with Dr. Simon who agrees with the assessment and plan of care. Subjective Date of service: 07/27/17 Principal diagnosis: NSTEMI Interval history: pt with no cardiac complaints, for [facility] this AM. Objective Last Vital Signs Temp 98.1 F 07/27/17 09:53 Pulse 90 07/27/17 10:40 Resp 18 07/27/17 10:40 BP 139/102 07/27/17 10:00 Pulse Ox 99 07/27/17 10:19 - Physical Examination HEENT: Positive: PERRL, Normocephaly, Mucus Membranes Moist Neck: Positive: neck supple, trachea midline Cardiac: Positive: Reg Rate and Rhythm, S1/S2 Lungs: Positive: clear to auscultation Neuro: Positive: Grossly Intact Abdomen: Positive: Soft. Negative: Tender Skin: Positive: Clear Musculoskeletal: No Fluid Collection, No Pain, Normal Range of Motion Extremities: Present: +2 Edema (BLE) - Labs and Meds Cardiac Enzymes 07/27/17 Range/Units 05:13 CK-MB (CK-2) 15.7 H (0.0-4.0) ng/mL Coagulation 07/27/17 Range/Units 05:13 PT 16.6 H (12.2-14.9) Sec. INR 1.27 H (0.87-1.13) CBC 07/27/17 Range/Units 05:13 WBC 6.4 (4.5-11.0) K/mm3 RBC 4.13 (3.65-5.03) M/mm3 Hgb 9.5 L (11.8-15.2) gm/dl Hct 29.5 L (35.5-45.6) % Plt Count 179 (140-440) K/mm3 Lymph # 1.4 (1.2-5.4) K/mm3 [place] # 0.7 (0.0-0.8) K/mm3 Eos # 0.2 (0.0-0.4) K/mm3 Baso # 0.0 (0.0-0.1) K/mm3 Comprehensive Metabolic Panel 07/27/17 Range/Units 05:13 Sodium 139 (137-145) mmol/L Potassium 3.3 L (3.6-5.0) mmol/L Chloride 99.8 (98-107) mmol/L Carbon Dioxide 25 (22-30) mmol/L BUN 24 H (9-20) mg/dL Creatinine 1.3 (0.8-1.5) mg/dL Glucose 98 (75-100) mg/dL Calcium 8.3 L (8.4-10.2) mg/dL - Imaging and Cardiology EKG: report reviewed, image reviewed Echo: pending
[2017-07-27] MEDS: ZESTRIL PO SCH (11:59)
[2017-07-27] MEDS: LOPRESSOR PO SCH ×2 (12:00→22:39)
[2017-07-27] MEDS: PEPCID PO SCH (12:00)
[2017-07-27] MEDS: LEVAQUIN PO SCH (12:00)
--- NOTE | 2017-07-27 17:29 | Progress Note ---
Assessment and Plan Assessment and plan: --Non-ST elevation [place] type II Negative stress test, continue current management --Possible gastroesophageal reflux disease; continue Protonix --Nonischemic cardiomyopathy ejection fraction 35-40% Continue current diuretics and beta blockers and dawn inhibitors and nitrates Low-sodium diet and fluid restriction --Community-acquired pneumonia; continue current antibiotics and supportive care --Malignant hypertension; blood pressures moderate control, continue current antihypertensives When necessary hydralazine --Mild hypokalemia; replace per protocol and monitor levels --Elevated D dimers; negative PE on CTA --History of atrial fibrillation with RVR; Now rate controlled, continue beta blockers, initiate anticoagulation with Eliquis. --Ongoing tobacco use; smoking cessation counseling done advised nicotine patch as needed --History of alcohol use; counseling done patient strongly advised to quit alcohol Closely monitor for any withdrawal symptoms --Dyslipidemia; stable on lipid-lowering medications --DVT prophylaxis; patient is started on Eliquis --Full CODE STATUS DC planning; possible discharge home tomorrow if stable Ambulate as tolerated History Interval history: Patient seen and examined medical records reviewed Patient underwent left heart catheterization, nonobstructed coronaries Patient has intermittent mild chest pain Denies nausea vomiting Vital signs reviewed Hospitalist Physical - Constitutional Vitals: Temp Pulse Resp BP Pulse Ox 97.6 F 106 H 18 157/91 99 07/27/17 11:41 07/27/17 12:00 07/27/17 11:41 07/27/17 14:18 07/27/17 11:36 General appearance: Present: no acute distress, well-nourished - EENT Eyes: Present: PERRL, EOM intact - Neck Neck: Present: supple, normal ROM - Respiratory Respiratory effort: normal Respiratory: negative: rales, rhonchi, wheezing - Cardiovascular Rhythm: regular Heart Sounds: Present: S1 & S2 - Extremities Extremities: no ischemia, No edema - Abdominal General gastrointestinal: soft, non-tender, non-distended, normal bowel sounds - Integumentary Integumentary: Present: clear, warm - Psychiatric Psychiatric: appropriate mood/affect, cooperative - Neurologic Neurologic: CNII-XII intact, moves all extremities Results - Labs CBC & Chem 7: 07/27/17 05:13 07/27/17 05:13 Labs: Laboratory Last Values WBC 6.4 K/mm3 (4.5-11.0) 02/13/18 05:13 RBC 4.13 M/mm3 (3.65-5.03) 07/27/17 05:13 Hgb 9.5 gm/dl (11.8-15.2) L 07/27/17 05:13 Hct 29.5 % (35.5-45.6) L 07/27/17 05:13 MCV 72 fl (84-94) L 07/27/17 05:13 MCH 23 pg (28-32) L 07/27/17 05:13 MCHC 32 % (32-34) 07/27/17 05:13 RDW 18.1 % (13.2-15.2) H 07/27/17 05:13 Plt Count 179 K/mm3 (140-440) 07/27/17 05:13 Lymph % (Auto) 22.0 % (13.4-35.0) 07/27/17 05:13 [place] % (Auto) 11.6 % (0.0-7.3) H 07/27/17 05:13 Eos % (Auto) 2.6 % (0.0-4.3) 07/27/17 05:13 Baso % (Auto) 0.5 % (0.0-1.8) 07/27/17 05:13 Lymph # 1.4 K/mm3 (1.2-5.4) 07/27/17 05:13 [place] # 0.7 K/mm3 (0.0-0.8) 07/27/17 05:13 Eos # 0.2 K/mm3 (0.0-0.4) 07/27/17 05:13 Baso # 0.0 K/mm3 (0.0-0.1) 07/27/17 05:13 Seg Neutrophils % 63.3 % (40.0-70.0) 07/27/17 05:13 Seg Neutrophils # 4.0 K/mm3 (1.8-7.7) 07/27/17 05:13 PT 16.6 Sec. (12.2-14.9) H 07/27/17 05:13 INR 1.27 (0.87-1.13) H 07/27/17 05:13 D-Dimer 973.26 ng/mlDDU (0-234) H 07/25/17 22:34 Heparin Anti-Xa Level 0.54 U.I./ml (0.3-0.7) 07/27/17 05:13 Sodium 139 mmol/L (137-145) 07/27/17 05:13 Potassium 3.3 mmol/L (3.6-5.0) L 07/27/17 05:13 Chloride 99.8 mmol/L (98-107) 07/27/17 05:13 Carbon Dioxide 25 mmol/L (22-30) 07/27/17 05:13 Anion Gap 18 mmol/L 07/27/17 05:13 BUN 24 mg/dL (9-20) H 07/27/17 05:13 Creatinine 1.3 mg/dL (0.8-1.5) 07/27/17 05:13 Estimated GFR > 60 ml/min 07/27/17 05:13 BUN/Creatinine Ratio 18 % 07/27/17 05:13 Glucose 98 mg/dL (75-100) 07/27/17 05:13 Calcium 8.3 mg/dL (8.4-10.2) L 07/27/17 05:13 Magnesium 1.70 mg/dL (1.7-2.3) 07/26/17 13:46 Iron 21 ug/dL (49-181) L 07/27/17 05:13 TIBC 315 mcg/dL (250-450) 07/27/17 05:13 % Saturation 6.67 % 07/27/17 05:13 Transferrin 284 mg/dl (180-329) 07/27/17 05:13 Ferritin 49.8 ng/mL (13.0-400.0) 07/27/17 05:13 Total Creatine Kinase 237 units/L (55-170) H 07/27/17 05:13 CK-MB (CK-2) 15.7 ng/mL (0.0-4.0) H 07/27/17 05:13 CK-MB (CK-2) Rel Index 6.6 (0-4) H 07/27/17 05:13 Troponin T 1.950 ng/mL (0.00-0.029) H* 07/27/17 05:13 C-Reactive Protein 1.30 mg/dL (0.00-1.30) 07/26/17 13:46 NT-Pro-B Natriuret Pep 8317 pg/mL (0-900) H 07/25/17 22:34 Triglycerides 71 mg/dL (2-149) 07/25/17 21:39 Cholesterol 135 mg/dL (50-199) 07/25/17 21:39 LDL Cholesterol Direct 69 mg/dL (50-130) 07/25/17 21:39 HDL Cholesterol 52 mg/dL (40-59) 07/25/17 21:39 Cholesterol/HDL Ratio 2.59 % 07/25/17 21:39
[2017-07-27] MEDS: LASIX IV SCH (19:24)
[2017-07-27] MEDS: ELIQUIS PO SCH (22:39)
[2017-07-28 05:59] LABS: BUN/Creatinine Ratio 18; Blood Urea Nitrogen 22 mg/dL (9-20); Calcium 8.3 mg/dL (8.4-10.2); Hemolysis Index 1
[2017-07-28] MEDS: LASIX IV SCH (06:10)
[2017-07-28] MEDS: PULMICORT IH SCH (08:13)
[2017-07-28] MEDS: BROVANA NEBU IH SCH (08:13)
[2017-07-28 09:24] VITALS: BP 149/96
--- NOTE | 2017-07-28 09:56 | Vascular Lab Report ---
LOWER EXTREMITY VENOUS DUPLEX: REASON FOR EXAM: Swelling. COMMENTS ON THE RIGHT: All veins visualized are freely compressible without evidence of internal echogenicity. Flow is spontaneous and phasic throughout. COMMENTS ON THE LEFT: All veins visualized are freely compressible without evidence of internal echogenicity. Flow is spontaneous and phasic throughout. IMPRESSION: No evidence of acute or chronic deep venous thrombosis in either lower extremity.
[2017-07-28] MEDS ORDERED: BABY ASPIRIN PO SCH (10:00)
[2017-07-28] MEDS: ELIQUIS PO SCH (10:32)
[2017-07-28] MEDS: PEPCID PO SCH (10:32)
[2017-07-28] MEDS: LEVAQUIN PO SCH (10:32)
[2017-07-28] MEDS: LOPRESSOR PO SCH (10:33)
[2017-07-28] MEDS: ZESTRIL PO SCH (10:33)
--- NOTE | 2017-07-28 10:43 | Progress Note ---
Assessment and Plan Assessment: NSTEMI type II Acute systolic heart failure - nearing/at euvolemia NICMP Persistent atrial fibrillation with CVR - on Eliquis HTN Bilateral PNA Elevated DDimer - chest CTA negative for PE H/o tobacco use / ETOH use - cessation encouraged Plan: Convert IV lasix to PO, 40mg daily. Cont all other present cardiac management. Currently stable cardiac status. Pt may discharge home from cardiology standpoint. Follow up in our [place] office with Dr. Simon on 08/04/2017 @ 11:00AM. Assessment and plan reviewed with pt at bedside. The patient has been seen in conjunction with Dr. Simon who agrees with the assessment and plan of care. Subjective Date of service: 07/28/17 Principal diagnosis: NSTEMI Interval history: pt resting at bedside, no current complaints. states he is ready for discharge home. Objective Last Vital Signs Temp 97.5 F L 07/28/17 08:16 Pulse 64 07/28/17 10:33 Resp 18 07/28/17 08:25 BP 149/96 07/28/17 10:33 Pulse Ox 98 07/28/17 08:16 - Physical Examination HEENT: Positive: PERRL, Normocephaly, Mucus Membranes Moist Neck: Positive: neck supple, trachea midline Cardiac: Positive: Reg Rate and Rhythm, S1/S2 Lungs: Positive: clear to auscultation Neuro: Positive: Grossly Intact Abdomen: Positive: Soft. Negative: Tender Skin: Positive: Clear. Negative: Rash Musculoskeletal: No Fluid Collection, No Pain, Normal Range of Motion Extremities: Absent: edema - Labs and Meds Comprehensive Metabolic Panel 07/28/17 Range/Units 05:21 Sodium 138 (137-145) mmol/L Potassium 3.5 L (3.6-5.0) mmol/L Chloride 99.1 (98-107) mmol/L Carbon Dioxide 25 (22-30) mmol/L BUN 22 H (9-20) mg/dL Creatinine 1.2 (0.8-1.5) mg/dL Glucose 97 (75-100) mg/dL Calcium 8.3 L (8.4-10.2) mg/dL - Imaging and Cardiology EKG: report reviewed, image reviewed Echo: report reviewed - Telemetry EKG Rhythm: Sinus Rhythm
--- NOTE | 2017-07-28 11:51 | Discharge Summary ---
Providers - Providers Date of Admission: 07/25/17 23:55 Date of discharge: 07/28/17 Attending physician: YURY SHUKLA 07/25/17 Consult to Cardiac Rehabilitation [CONS] Routine Reason For Exam: Phase 1 07/25/17 23:10 Consult to Physician [CONS] Routine Consulting Provider: KARI STEWART Reason For Exam: nstemi Place consult to:: silvina Notified:: y Was contact made?: Yes If yes, spoke with:: silvina 07/26/17 07:43 Consult to Physician [CONS] Urgent Consulting Provider: CHARLES ERAZO Reason For Exam: critical care management Place consult to:: Charles Erazo Notified:: yes Phone number called:: [phone] Was contact made?: Yes If yes, spoke with:: Answering service Time called:: 07:45 07/27/17 10:35 Consult to Cardiac Rehabilitation [CONS] Routine Reason For Exam: Cardiac Rehab Evaluation Primary care physician: ARIELLA LEVIN Hospitalization Condition: Stable Hospital course: --Non-ST elevation [place] type II Negative stress test, continue current management --Possible gastroesophageal reflux disease; continue Protonix --Nonischemic cardiomyopathy ejection fraction 35-40% Continue current diuretics and beta blockers and dawn inhibitors and nitrates Low-sodium diet and fluid restriction --Community-acquired pneumonia; continue current antibiotics and supportive care --Malignant hypertension; blood pressures moderate control, continue current antihypertensives When necessary hydralazine --Mild hypokalemia; replace per protocol and monitor levels --Elevated D dimers; negative PE on CTA --History of atrial fibrillation with RVR; Now rate controlled, continue beta blockers, initiate anticoagulation with Eliquis. --Ongoing tobacco use; smoking cessation counseling done advised nicotine patch as needed --History of alcohol use; counseling done patient strongly advised to quit alcohol Closely monitor for any withdrawal symptoms --Dyslipidemia; stable on lipid-lowering medications Disposition: DC-01 TO HOME OR SELFCARE Time spent for discharge: 32 min Core Measure Documentation - Palliative Care Palliative Care/ Comfort Measures: Not Applicable - Core Measures Any of the following diagnoses?: none Exam - Constitutional Vitals: Temp Pulse Resp BP Pulse Ox 97.5 F L 64 18 149/96 98 07/28/17 08:16 07/28/17 10:33 07/28/17 10:00 07/28/17 10:33 07/28/17 10:00 General appearance: Present: no acute distress, well-nourished - EENT Eyes: Present: PERRL, EOM intact - Neck Neck: Present: supple, normal ROM - Respiratory Respiratory effort: normal Respiratory: negative: rales, rhonchi, wheezing - Cardiovascular Rhythm: regular Heart Sounds: Present: S1 & S2 - Extremities Extremities: no ischemia, No edema - Abdominal General gastrointestinal: Present: soft, non-tender, non-distended, normal bowel sounds - Integumentary Integumentary: Present: clear, warm - Musculoskeletal Musculoskeletal: strength equal bilaterally - Psychiatric Psychiatric: appropriate mood/affect, cooperative - Neurologic Neurologic: CNII-XII intact, moves all extremities Plan Activity: advance as tolerated, fall precautions Diet: other (cardiac diet) Special Instructions: smoking cessation Additional Instructions: Follow up in our [place] office with Dr. Blal on 2017 @ 11:00AM. Follow up with: ARIELLA LEVIN MD [Primary Care Provider] - 3-5 Days LEXIS BALL MD [Staff Physician] - 7 Days Prescriptions: ALBUTEROL Inhaler [ProAir HFA Inhaler] 2 puff IH QID PRN #1 inhalation PRN Reason: Shortness Of Breath Apixaban [Eliquis] 5 mg PO Q12HR #60 tablet Arformoterol Nebu [Brovana Nebu] 15 mcg IH Q12HRT 30 Days ml AtorvaSTATin [Lipitor] 40 mg PO QHS #30 tablet Budesonide [Pulmicort Respules] 0.5 mg IH Q12HRT 30 Days nebu Famotidine [Pepcid] 20 mg PO QDAY #14 tablet Furosemide [Lasix TAB] 40 mg PO QDAY #30 tablet Levofloxacin [Levaquin TAB] 500 mg PO DAILY #5 tablet Metoprolol [Lopressor TAB] 25 mg PO BID #60 tablet Nicotine [Habitrol] 14 mg TD DAILY #30 patch
[2017-07-28] MEDS ORDERED: PNEUMOVAX 23 IM ONE (12:00)
[2017-07-28] MEDS ORDERED: Fluarix Quad 2017-2018(36 MOS+ IM ONE (12:00)
[2017-07-29] MEDS ORDERED: LASIX PO SCH (10:00)
== END 2017-07-28 19:24 | disposition home or self-care (01) | DRG 280 ==
LOC: ED 19:53 → CC1 23:55 → 4A 07-26 18:47
PROVIDERS: ADMIT Internal Medicine; ATTEND Internal Medicine
PROC: 4A023N7 Measurement of Cardiac Sampling and Pressure, Left Heart, Percutaneous Approach (ICD-10-PCS; principal; 2017-07-27)
PROC: B2151ZZ Fluoroscopy of Left Heart using Low Osmolar Contrast (ICD-10-PCS; 2017-07-27)
PROC: B2111ZZ Fluoroscopy of Multiple Coronary Arteries using Low Osmolar Contrast (ICD-10-PCS; 2017-07-27)
PROC: 3E0234Z Introduction of Serum, Toxoid and Vaccine into Muscle, Percutaneous Approach (ICD-10-PCS; 2017-07-28)
DX: I21.4 Non-ST elevation (NSTEMI) myocardial infarction (principal); I50.31 Acute diastolic (congestive) heart failure; J18.9 Pneumonia, unspecified organism; J44.0 Chronic obstructive pulmonary disease with (acute) lower respiratory infection; D68.59 Other primary thrombophilia; I13.0 Hypertensive heart and chronic kidney disease with heart failure and stage 1 through stage 4 chronic kidney disease, or unspecified chronic kidney disease; I42.9 Cardiomyopathy, unspecified; Z23 Encounter for immunization; Z86.73 Personal history of transient ischemic attack (TIA), and cerebral infarction without residual deficits; Z82.49 Family history of ischemic heart disease and other diseases of the circulatory system; E78.00 Pure hypercholesterolemia, unspecified; F17.210 Nicotine dependence, cigarettes, uncomplicated; I48.91 Unspecified atrial fibrillation; F10.20 Alcohol dependence, uncomplicated; Y90.9 Presence of alcohol in blood, level not specified; N18.2 Chronic kidney disease, stage 2 (mild); E87.6 Hypokalemia; K21.9 Gastro-esophageal reflux disease without esophagitis
CPT/HCPCS: 36415; 71046; 71275; 80048; 80061; 82550; 82553; 82728; 83550; 83735; 83880; 84484; 85025; 85379; 85520; 85610; 86140; 90686; 90732; 93005; 93010; 93306; 93458; 93970; 94640; 96374; 96375; 99291; A9270-GY; C1894; J0360; J1644; J1940; J2250; J3010; J7040; Q9967